=== PATIENT | male | born 1980 | race Caucasian/White ===

== ENCOUNTER 2021-10-08 09:43 | Day surgery (SDC) | payer OTHER ==
[~2021-10-08] VITALS: Ht 182.9 cm; Wt 122.5 kg
[2021-10-08] MEDS ORDERED: fentaNYL citrate 0.05 MG/ML VIAL ONE (11:40)
[2021-10-08] MEDS ORDERED: MIDAZOLAM 5 MG/5 ML VIAL ONE (11:40)
[2021-10-08] MEDS ORDERED: MIDAZOLAM 2 MG/2 ML VIAL IVP ONE (14:45)
[2021-10-08] MEDS ORDERED: fentaNYL citrate 0.05 MG/ML VIAL IVP ONE (14:45)
== END 2021-10-08 13:22 | disposition home or self-care (01) ==
LOC: MMU 09:43 → MOR 09:43
PROVIDERS: ATTEND Internal Medicine Gastroenterology
DX: K62.5 Hemorrhage of anus and rectum (principal); K57.30 Diverticulosis of large intestine without perforation or abscess without bleeding; K20.90 Esophagitis, unspecified without bleeding; K64.8 Other hemorrhoids; Z20.822 Contact with and (suspected) exposure to COVID-19
CPT/HCPCS: 43235; 45378; 87426; J2250; J3010